=== PATIENT | male | born 1990 | race Caucasian/White ===

== ENCOUNTER 2018-03-18 09:22 | Inpatient (IN) | payer MEDICAID, OTHER ==
[2018-03-18] MEDS ORDERED: IOPAMIDOL (ISOVUE 370) 100 ML BTL IV ONE (09:31)
[2018-03-18 09:36] LABS: PLATELET COUNT 241 10^3/uL (150-400)
--- NOTE | 2018-03-18 09:44 | EDPHY ---
H & P Stated Complaint: post arrest Time Seen by Provider: 03/18/18 09:36 HPI/ROS: CHIEF COMPLAINT: Cardiac arrest, hanging Limitations: Patient unresponsive HISTORY OF PRESENT ILLNESS: 28-year-old male presents unresponsive and apneic after cardiac arrest. He was found this morning in [facility]pc hanging from a bed sheet. He was pulseless and apneic. He was lowered to the floor and CPR was initiated. Intubated with a Yogesh airway by EMS and epinephrine IO given. Regained pulses, but unable to detect a blood pressure. REVIEW OF SYSTEMS: unable to determine Source: EMS - Medical/Surgical History Hx Asthma: No Hx Chronic Respiratory Disease: No Hx Diabetes: No Hx Cardiac Disease: No Hx Renal Disease: No Hx Cirrhosis: No Hx Alcoholism: No Hx HIV/AIDS: No Hx Splenectomy or Spleen Trauma: No Other PMH: c-diff, ashbergers, ADHD - Social History Smoking Status: Never smoked - Physical Exam Exam: General Appearance: Unresponsive, pale Head: Atraumatic Eyes: Pupils fixed and dilated ENT, Mouth: Yogesh airway in place, poor dentition Neck: linear abrasion on anterior neck, cervical spine collar in place Respiratory: No spontaneous respirations, breath sounds are equal with ventilations Cardiovascular: Regular rate and rhythm, strong femoral pulse Abdomen: Abdomen is soft Skin: No lacerations Extremities: Normal inspection Neurological: Unresponsive to painful stimuli, flaccid, pupils fixed and dilated Constitutional: Initial Vital Signs Temperature (C) 36.0 C 03/18/18 09:33 Heart Rate 119 H 03/18/18 09:33 Respiratory Rate 16 03/18/18 09:33 Blood Pressure 63/45 L 03/18/18 09:33 O2 Sat (%) 98 03/18/18 09:33 O2 Delivery Mode Ventilator,Humidified Allergies/Adverse Reactions: Unable to Assess Allergy (Unverified 03/18/18 10:16) Home Medications: Medication Instructions Recorded Unobtainable 03/18/18 Medical Decision Making - Diagnostics EKG Interpretation: EKG interpreted by me reveals sinus tachycardia, rate 111, ST segment depression in leads V3-V5, no T-wave changes. Interpretation abnormal EKG Imaging Results: Imaging Impressions Chest X-Ray 03/18/18 09:28 Impression: 1. Chest negative for posttraumatic sequela with no pneumothorax identified. 2. Endotracheal tube in place. 3. Distended stomach. Results called and discussed with STEPHANE BRITTON M.D. on 03/18/2018 at 10:08. Cervical Spine CT 03/18/18 09:29 Impression: 1. Negative for intracranial bleed. 2. Query raised intracranial pressure versus normal sulcal pattern in a 28-year- old male. CT Cervical Spine Without Contrast History: Trauma. Technique: Multislice helical CT through the cervical spine without contrast from the skull base to T1. Soft tissue and bone evaluation is performed. Images are degraded by patient motion artifact, but images reviewed on the CT angiogram of the neck have less motion artifact. Sagittal and coronal reconstructions are obtained and reviewed. Dose reduction techniques were utilized. Findings: Cervical alignment is anatomic. No fracture or dislocation is identified. The relationship between skull base and C1 is normal. The C1-C2 articulation is normal. The odontoid process is normal. Disk spaces maintain their normal height. The cervicothoracic junction is normal. Soft tissue window evaluation does not show evidence of epidural or prevertebral hematoma. An endotracheal tube is in position. The esophagus is distended with fluid. Placement of a nasogastric tube is planned. Impression: 1. Negative for fracture. 2. The esophagus is distended with fluid. Results discussed with the trauma surgeon at [address] 03/18/18 09:29 Impression: 1. Negative for intracranial bleed. 2. Query raised intracranial pressure versus normal sulcal pattern in a 28-year- old male. CT Cervical Spine Without Contrast History: Trauma. Technique: Multislice helical CT through the cervical spine without contrast from the skull base to T1. Soft tissue and bone evaluation is performed. Images are degraded by patient motion artifact, but images reviewed on the CT angiogram of the neck have less motion artifact. Sagittal and coronal reconstructions are obtained and reviewed. Dose reduction techniques were utilized. Findings: Cervical alignment is anatomic. No fracture or dislocation is identified. The relationship between skull base and C1 is normal. The C1-C2 articulation is normal. The odontoid process is normal. Disk spaces maintain their normal height. The cervicothoracic junction is normal. Soft tissue window evaluation does not show evidence of epidural or prevertebral hematoma. An endotracheal tube is in position. The esophagus is distended with fluid. Placement of a nasogastric tube is planned. Impression: 1. Negative for fracture. 2. The esophagus is distended with fluid. Results discussed with the trauma surgeon at 1030 hours. Neck CTA 03/18/18 09:29 Impression: Negative CT angiography of the neck with no arterial occlusive disease identified. Results called and discussed with STEPHANE BRITTON M.D. on 03/18/2018 at 10:59. Findings were also reviewed with the trauma surgeon. Note: All stenoses are calculated using NASCET Criteria. Imaging: Discussed imaging studies w/ certified hand therapist Radiologist, I viewed and interpreted images myself Procedures: Procedure: Intubation Indication for the procedure was respiratory arrest. The patient was preoxygenated with 100% oxygen by face mask. No medications required for intubation. The patient was orally endotracheally intubated under direct glidescope visualization with an 8.0 ETT. Tracheal intubation was confirmed with misting on the tube; equal breath sounds bilaterally immediately after intubation; appropriate color change with [place] CO2 detector; and appropriate capnography waveform. Oxygen saturation after intubation is 100%. Chest X-ray shows ETT in good position. The procedure was performed by myself. ED Course/Re-evaluation: Full trauma activation initiated on patient arrival. 2 IVs were established, initial SBP 60's. IV NS 1 liter wide open. 8.0 endotracheal tube placed by me without complications. Stat portable chest x-ray reveals ET tube in appropriate positioning. Thermaguard catheter placed by Dr. Billings for HACA protocol. Norepi IV drip ordered for BP support, since SBP remains in the 60's. To CT scan for CT/CTA head/neck. CT scans per Dr. Zuñiga unremarkable. NGT placed; large amount of air in stomach d/t yogesh airway. Cabrera placed. Serial neuro exams unchanged. To ICU in critical condition. I spent a total of 40 minutes of critical care time in obtaining history, performing a physical exam, bedside monitoring of interventions, collecting and interpreting tests and discussion with consultants but not including time spent performing procedures. - Data Points Laboratory Results: Laboratory Results 03/18/18 09:15 03/18/18 09:15 03/18/18 03/18/18 03/18/18 09:31 09:15 09:15 WBC 7.15 10^3/uL 10^3/uL (3.80-9.50) RBC 4.40 10^6/uL 10^6/uL (4.40-6.38) Hgb 12.9 g/dL L g/dL (13.7-17.5) POC Hgb 13.9 gm/dL gm/dL (13.7-17.5) Hct 42.4 % % (40.0-51.0) POC Hct 41 % % (40-51) MCV 96.4 fL fL (81.5-99.8) MCH 29.3 pg pg (27.9-34.1) MCHC 30.4 g/dL L g/dL (32.4-36.7) RDW 14.1 % % (11.5-15.2) Plt Count 241 10^3/uL 10^3/uL (150-400) MPV 9.7 fL fL (8.7-11.7) Neut % (Auto) Not Reported Lymph % (Auto) Not Reported Montgomery % (Auto) Not Reported Eos % (Auto) Not Reported Baso % (Auto) Not Reported Nucleat RBC Rel Count Not Reported Absolute Neuts (auto) Not Reported Absolute Lymphs (auto) Not Reported Absolute Monos (auto) Not Reported Absolute Eos (auto) Not Reported Absolute Basos (auto) Not Reported Absolute Nucleated RBC Not Reported Immature Gran % Not Reported Seg Neutrophils % 8.0 % % Band Neutrophils % 3.0 % % Lymphocytes % 71.0 % % Monocytes % 4.0 % % Eosinophils % 1.0 % % Basophils % 0 % % Metamyelocytes % 5.0 % % Myelocytes % 8.0 % % Promyelocytes % 0 % % Blast Cells % 0 % % Immature Gran # Not Reported Absolute Seg Neuts 0.57 10^/uL L 10^/uL (1.70-6.50) Absolute Band Neuts 0.21 10^3/uL 10^3/uL (0.00-0.70) Absolute Lymphocytes 5.08 10^3/uL H 10^3/uL (1.00-3.00) Absolute Monocytes 0.29 10^3/uL L 10^3/uL (0.30-0.80) Absolute Eosinophils 0.07 10^3/uL 10^3/uL (0.03-0.40) Absolute Basophils 0.00 10^3/uL L 10^3/uL (0.02-0.10) Absolute Metamyelocyte 0.36 10^3/mL H 10^3/mL (0.00-0.00) Absolute Myelocytes 0.57 10^3/mL H 10^3/mL (0.00-0.00) Absolute Promyelocytes 0.00 10^3/uL 10^3/uL (0.00-0.00) Absolute Plasma Cells 0.00 10^3/uL 10^3/uL (0.00-0.00) Differential Comment Not Reported Absolute Blast Cells 0.00 10^3/uL 10^3/uL (0.00-0.00) Plasma Cells % 0 % % Platelet Estimate ADEQUATE (ADEQ) POC Sodium 140 mEq/L mEq/L (135-145) Sodium 140 mEq/L mEq/L (135-145) POC Potassium 3.5 mEq/L mEq/L (3.3-5.0) Potassium 3.8 mEq/L mEq/L (3.3-5.0) POC Chloride 103 mEq/L mEq/L (97-110) Chloride 104 mEq/L mEq/L (97-110) Carbon Dioxide 14 mEq/l L mEq/l (22-31) Anion Gap 22 mEq/L H mEq/L (8-16) POC BUN 19 mg/dL mg/dL (7-23) BUN 14 mg/dL mg/dL (7-23) Creatinine 1.1 mg/dL mg/dL (0.7-1.3) POC Creatinine 1.2 mg/dL mg/dL (0.7-1.3) Estimated GFR > 60 Glucose 276 mg/dL H mg/dL (70-100) POC Glucose 291 mg/dL H mg/dL (70-100) Calcium 9.1 mg/dL mg/dL (8.5-10.4) Ethyl Alcohol < 10 mg/dL mg/dL (0-10) Medications Given: Fentanyl/Sodium Chloride (Fentanyl 10 Mcg/Ml (Premix)) 100 mls @ 0 mls/hr IV CONT LAKSHMI; Per Protocol PRN Reason: Protocol Stop: 03/28/18 11:29 Last Admin: 03/18/18 12:28 Dose: 100 mls Dextrose (D5w) 1,000 mls @ 25 mls/hr IV CONT LAKSHMI PRN Reason: Protocol Stop: 09/14/18 14:29 Last Admin: 03/18/18 14:46 Dose: 1,000 mls Insulin Human Regular 100 unit (/ Sodium Chloride) 101 mls @ 0 mls/hr IV CONT LAKSHMI; Per Protocol PRN Reason: Protocol Stop: 09/14/18 14:29 Last Admin: 03/18/18 14:46 Dose: 101 mls Discontinued Medications Sodium Chloride (Ns) 1,000 mls @ 0 mls/hr IV ONCE ONE; Wide Open PRN Reason: Protocol Stop: 03/18/18 11:35 Last Admin: 03/18/18 09:25 Dose: 1,000 mls Potassium Chloride (Potassium Cl 10 Meq (Premix)) 50 mls @ 100 mls/hr IV Q30M LAKSHMI Stop: 03/18/18 13:44 Last Admin: 03/18/18 13:35 Dose: Not Given Miscellaneous Information (Message To Rn) 1 ea MISC ONCE ONE Stop: 03/18/18 13:31 Last Admin: 03/18/18 13:35 Dose: 1 ea Point of Care Test Results: Chemistry 03/18/18 09:31 POC Sodium 140 mEq/L mEq/L (135-145) POC Potassium 3.5 mEq/L mEq/L (3.3-5.0) POC Chloride 103 mEq/L mEq/L (97-110) POC BUN 19 mg/dL mg/dL (7-23) POC Creatinine 1.2 mg/dL mg/dL (0.7-1.3) POC Glucose 291 mg/dL H mg/dL (70-100) ISTAT H&H 03/18/18 09:31 POC Hgb 13.9 gm/dL gm/dL (13.7-17.5) POC Hct 41 % % (40-51) Departure - Departure Disposition: [facility] Inpatient Acute Clinical Impression: Cardiopulmonary arrest Asphyxiation due to hanging Qualifiers: Encounter type: initial encounter Injury intent: intentional self-harm Qualified Code(s): T71.162A - Asphyxiation due to hanging, intentional self-harm , initial encounter Condition: Critical
--- NOTE | 2018-03-18 09:48 | CPEKG ---
Heart Rate: 111 RR Interval: 541 P-R Interval: 140 QRSD Interval: 86 QT Interval: 352 QTC Interval: 479 P [place]: 88 QRS [place]: 18 T Wave [place]: 37 EKG Severity - ABNORMAL ECG - EKG Impression: SINUS TACHYCARDIA EKG Impression: ST DEPRESSION, CONSIDER ISCHEMIA, ANT LEADS EKG Impression: BORDERLINE PROLONGED QT INTERVAL Electronically Signed By: Melody Deras 18-Mar-2018 14:50:47
[2018-03-18] MEDS ORDERED: NOREPINEPHRINE BITARTRATE 16 MG in NS 250 ML IV SCH (10:00)
[2018-03-18] MEDS ORDERED: NALOXONE HCL 0.4 MG/ML INJ IVP PRN (10:16)
[2018-03-18] MEDS ORDERED: NOREPINEPHRINE/NS 500 ML IV SCH (10:30)
[2018-03-18] MEDS ORDERED: VECURONIUM BROMIDE 50 MG in NS 50 ML IV SCH (11:30)
[2018-03-18] MEDS ORDERED: NS 1,000 ML IV ONE ×2 (11:34→11:35)
--- NOTE | 2018-03-18 11:49 | GCON ---
[f rep st] CONSULTATION RETAIL ACCOUNT REPRESENTATIVE CONSULTATION REASON FOR ADMISSION: Status post hanging, anoxic brain injury. HISTORY OF PRESENT ILLNESS: The patient is a 28-year-old, white male with a past medical history of IV drug use, Asperger syndrome, ADHD, hepatitis C, and HIV by history. He was brought in via EMS fro m the senior living where he was found hanging from a bed sheet. Upon presentation, he was pulseless and apne ic. After CPR was performed, he was subsequently resuscitated. He was transferred to the intensive care unit and is currently on HOCA protocol. Currently, patient is in coma on mechanical ventilation . All history is gleaned from the medical record. PAST MEDICAL HISTORY: Again significant for C difficile, ADHD, Asperger, and verbal history of HIV p ositivity. ALLERGIES: No known medications. SOCIAL HISTORY: Unknown. FAMILY HISTORY: Unknown and noncontributory. MEDICATIONS: At home are unknown. REVIEW OF SYSTEMS: 10-point review of systems was attempted, but unable to performed, secondary to c stanley. PHYSICAL EXAMINATION: VITAL SIGNS: Blood pressure is 62/27, pulse is 119, respirations 16, temperat ure 36.9, oxygen saturations 98% on mechanical ventilation. GENERAL: He is a well-developed, well-n ourished, 28-year-old, white male who is in coma and on mechanical ventilation. HEENT: Eyes are poo rly reactive to light. Throat: Endotracheal tube is in good position. NECK: Patient is in a C-col lar. HEART: Regular rate and rhythm without murmurs, rubs, gallops. LUNGS: Clear to auscultation. No wheeze or rhonchi. ABDOMEN: Soft, nontender. Bowel sounds are present. EXTREMITIES: No club surinder, cyanosis, or edema. LABORATORY/IMAGING: White count 7.1, hemoglobin 12, hematocrit 42, platelet count is 241. Sodium 14 0, potassium 3.8, chloride 104, CO2 is 14, BUN is 14, creatinine 1.1, glucose is 276. Arterial blood gas: pH 7.24, pCO2 of 25, pO2 of 111, bicarb 11, oxygen saturation 97%. This is on mechanical vent ilation of AC of 16, tidal volume 550, plus5 of PEEP and 100%. Urine drug screen is non-negative for amphetamines, as well as marijuana. C-spine CT is negative for fracture. CT scan of the head is negative for bleed and there were no findings, which suggest acute cortical is chemia. IMPRESSION: 1. Status post hanging. 2. Probable severe anoxic brain injury. 3. Acute respiratory failure, secondary to above. 4. Metabolic acidosis. 5. Polysubstance abuse. 6. History of attention deficit hyperactivity disorder. 7. History of Asperger's. 8. Possible human immunodeficiency virus positive. RECOMMENDATIONS: 1. HOCA per protocol. 2. Continue mechanical ventilation. 3. Adequate sedation. 4. DVT and PE prophylaxis. 5. Stress ulcer prophylaxis. 6. Neurology will see the patient. 7. We will discuss case with surgery. 8. We will attempt to get in touch with the patient's family. /[id number]/MODL
[2018-03-18] MEDS ORDERED: PROTOCOL MAGNESIUM 1 DOSE IV PRN (12:06)
[2018-03-18] MEDS ORDERED: PROTOCOL POTASSIUM 1 DOSE MISC PRN (12:06)
[2018-03-18] MEDS: fentaNYL/NACL 100 ML IV SCH (12:28)
[2018-03-18] MEDS: POTASSIUM Cl (KCl) 50 ML IV SCH ×5 (12:28→20:45)
[2018-03-18 12:48] LABS: INR 1.27 (0.83-1.16); PROTIME(PATIENT) 16.1 SEC (12.0-15.0)
[2018-03-18] MEDS ORDERED: niCARdipine/NACL 200 ML IV PRN (13:30)
[2018-03-18] MEDS ORDERED: RN MUST ADD K & MAG PROT TO WORKLIST MISC ONE (13:30)
--- NOTE | 2018-03-18 13:38 | GOP ---
[f rep st] OPERATIVE REPORT DATE OF OPERATION: 03/18/2018 SURGEON: Humphrey Billings MD PROSTHODONTIST: None. ANESTHESIA: None. PREOPERATIVE DIAGNOSIS: Cardiac arrest after near-hanging POSTOPERATIVE DIAGNOSIS: Cardiac arrest after near-hanging PROCEDURE PERFORMED: Right femoral vein hypothermia catheter placement. FINDINGS: Successful cannulation and placement of hypothermia catheter into the right femoral vein. SPECIMENS: None. ESTIMATED BLOOD LOSS: 3 cc. DESCRIPTION OF PROCEDURE: In the trauma bay, the patient's right groin was prepped and draped in a typical sterile fashion. A time-out was performed. Via anatomic landmarks, I identified the right femoral vein. I successfully cannulated it with a single stick and threaded my guidewire. I then serially dilated and threaded the catheter over this all the way to the hub. All 3 ports on the triple-lumen portion of the catheter both flushed and withdrew appropriately. They were saline locked. The catheter was then attached to the skin. A Biopatch was placed, as well as a sterile dressing. The patient tolerated the procedure well without any complications. DRAINS: None. /[id number]/MODL MTDD
--- NOTE | 2018-03-18 13:49 | GHP ---
[f rep st] PREOP HISTORY AND PHYSICAL DATE OF ADMISSION: 03/18/2018 CHIEF COMPLAINT: Near hanging. HISTORY OF PRESENT ILLNESS: This is a 28-year-old male brought to the [facility] as a full trauma activation from the [facility]. Briefly, the patient was in ja il since last evening. He was found in his cell with a sheet wrapped around his neck unconscious and without a pulse. Approximate down time maximum was 30 minutes as their rounds were every 30 minutes minimum. Chest compressions were started. EMS arrived and after 1 round of epinephrine and 1 defib rillation, the patient regained a pulse. He was subsequently transferred here and maintained a low b lood pressure and pulse en route. On arrival here, he was made a full trauma activation. He had an oral airway, which was subsequently changed out for an endotracheal tube per Dr. Deras without issue. He had no other signs of trauma other than some ligature rockwell on his neck. His pupils were fixed a nd dilated. After his airway was secured and he was stable on the vent, his lungs were otherwise eduardo ar without any significant signs of trauma, and he did have distal peripheral pulses. There is reall y minimal other report from the shelter other than the above. PAST MEDICAL HISTORY: Unobtainable. PAST SURGICAL HISTORY: Unobtainable. CURRENT MEDICATIONS: Unobtainable. ALLERGIES: Unobtainable. REVIEW OF SYSTEMS: Unobtainable. FAMILY HISTORY: Unobtainable. PHYSICAL EXAM: VITAL SIGNS: Heart rate was initially in the 90s. Blood pressure was 70s to 80 syst olic. CONSTITUTIONAL: He was sedated and intubated. He was not moving anything. EYES: His pupils were fixed and dilated. EARS, NOSE, MOUTH, AND THROAT: No trauma to his nose, mouth. NECK: Somew hat swollen with ligature rockwell anteriorly. He did not have any petechial hemorrhages or any other v enous or arterial hemorrhages in his neck. He had bilateral 2+ carotid pulses. CARDIOVASCULAR: He was bradycardic and hypotensive with no appreciable murmurs. RESPIRATORY: No respiratory distress, intubated, no rales, and he was otherwise clear. GI: His abdomen was soft and nondistended. SKIN: Other than the ligature rockwell on his neck was warm, not mottled, and without rashes or abrasions. M USCULOSKELETAL: The patient was not moving anything and was not on arrival. NEUROLOGIC: GCS 3T. P upils fixed and dilated. PSYCH: Unobtainable. LYMPH/HEME/IMMUNOLOGIC: No cervical or groin lympha denopathy was appreciated. LABORATORY DATA: White blood cell count normal at 7. H and H normal at 13 and 42, platelets 241. C hemistry was unremarkable. Tox screen was positive for amphetamines and marijuana. IMAGING: Includes a CT of his head and C-spine as well as CTA of his neck, all of which were negativ e for acute trauma and vessel injury. ASSESSMENT AND PLAN: 28-year-old male status post near hanging at the [facility] shelter. The enrique ent received chest compressions, epinephrine, and defibrillation with return of spontaneous circulati on prior to arrival here. He was hypertensive here. He received norepinephrine and responded approp riately with his pressures being somewhat hypertensive in the emergency department. Plan will be to place a hypothermia catheter into his right femoral vein, cool the patient down appropriately per the hypothermia after cardio arrest protocol, orogastric tube, Cabrera catheter placement. /[id number]/MODL
--- NOTE | 2018-03-18 14:27 | PDMN ---
Medical Necessity Medical necessity: Pt meets inpt criteria per MD order and Respiratory failure GRG. Pt admitted w/ cardiac arrest after near hanging in fdc cell, found unresponsive, CPR, intubated, to OR for R fem vein hypothermia catheter placement, probable anoxic brain injury, metabolic acidosis, coma- mech ventilation, ICU monitoring. Anticipate>2MN for ongoing treatment.
[2018-03-18] MEDS ORDERED: D5W 1,000 ML IV SCH (14:30)
[2018-03-18] MEDS: INSULIN REGULAR HUMAN 100 UNIT in NS 100 ML IV SCH (14:46)
--- NOTE | 2018-03-18 15:34 | ASMTLACE ---
AIDEN Acuity / Level of Answers: Yes Care: Did the patient have an inpatient admission? # of Emergency department Answers: 1-2 visits in the last 6 months Social determinants Answers: History of substance abuse (ETOH, street drugs, prescription drugs, etc.) Homelessness (street, intermediate) Lack of community resources and/or lack of social support (no pcp, lives alone, transportation, jerrod d) Score: 14 Date Signed: 03/18/2018 03:34 PM Electronically Signed By:Chely Wolff RN
--- NOTE | 2018-03-18 17:27 | ASMTCMCOM ---
CM Note CM Note Notes: Pt presented to the ED via EMS from care home after he was found unconscious and pulseless with a sheet wrapped around his neck. CPR was performed and ROSC was obtained via EMS. Pt admitted for s/p cardiac arrest and is receiving HACA treatment. This CM was finally able to locate pt's mother, Casie Danielle ([phone]) who lives in [facility]. This CM had contacted [place] [employer] ([phone]) and requested an officer go to an address ([address] [place] [address]) that the patient had listed on records w/[place] [employer]. Officer Juan Francisco Calderon w/[place] [employer] went to the address and remained w/Casie while this CM spoke to her and informed her of pt's status. Casie became extremely distraught and was not able to participate in further conversation. Officer Kvng says he is familiar with patient and his family and will ensure Casie and family have necessary support and assistance during this time. Received a call back from Casie and her sister, Monica Diaz ([phone]), who is a heat treat furnace operator. Casie gave verbal permission to provide pt's medical status and information to Monica. Updates provided and ICU # provided to them to call for further updates. EDUCATIONAL SPECIALIST Salvador updated and aware that Casie and Monica may be calling for updates. Casie confirmed that patient has a history of Asberger's syndrome and drug abuse but no other known medical history (might have some GI issues?), medications, or allergies. Casie is aware that pt is in critical condition and is going to be looking into coming to [place] but per Monica pt is not emotionally stable to travel any time soon and there are also financial concerns. Pt's sister, Malorie Tobias ([phone]) also lives in [place], [place] and if staff are unable to reach Casie or Monica, Casie has given permission to then contact Malorie. Pt was in the ED last night for medical clearance to care home. This CM spoke w/Jluianne, the care home RN ([phone]) and she states that the pen rider investigating the case has pt's cell phone and other belongings. This CM spoke w/ Sergeant Montgomery with [place] [employer] (c: [phone]); she stated pt was arrested last night for trespassing and was only going to receive a ticket but then was being held due to a failure to appear in [place]; last night was the patient's first encounter w/[employer]. Sergeant Montgomery said they will release patient on a [place] villanueva and so patient is no longer in their custody. It appears pt has been homeless but its unclear for how long. Spoke w/EDWIGE Reis at [facility] to [place] and he confirmed that pt is not in their system. During the pt's ED visit last night he listed an address that belongs to [employer] ([phone]), a buddhism in [place]. This CM contacted [facility] and spoke w/Florin Bhatia who works for [place] [employer] ([phone]) and he was able to confirm that patient had completed their CE process on 03/05/18 but has only been utilizing their day services intermittently. Pt has a history of meth and heroin abuse and has been through rehab programs before (s/w staff at [facility] and his last stay there was in 2014). Pt also reported to ED staff last night that he was diagnosed with C-diff 3 weeks ago. Per Casie, pt was visiting in [place] about 3 weeks ago before returning to [place]. After pt is gradually re-warmed in a couple of days, neurological and anoxic brain injury status will be evaluated. CM to follow. Date Signed: 03/18/2018 05:26 PM Electronically Signed By:Chely Wolff RN
[2018-03-18] MEDS: SODIUM BICARBONATE 50 MEQ in 1/2 NS 1,000 ML IV SCH (18:50)
[2018-03-18] MEDS: CHLORHEXIDINE GLUCONATE 15 ML UDL PO SCH (20:16)
[2018-03-18] MEDS: FAMOTIDINE 20 MG/NACL 50 ML IV SCH (20:46)
[2018-03-18 23:53] LABS: INR 1.34 (0.83-1.16); PROTIME(PATIENT) 16.8 SEC (12.0-15.0)
[2018-03-19 00:13] LABS: PLATELET COUNT 272 10^3/uL (150-400)
[2018-03-19] MEDS ORDERED: POTASSIUM Cl (KCl) 50 ML IV ONE (00:57)
[2018-03-19 02:30] LABS: HEPATITIS B SURFACE ANTIGEN NEGATIVE (NEGATIVE)
[2018-03-19] MEDS: fentaNYL/NACL 100 ML IV SCH ×3 (04:05→22:06)
[2018-03-19 04:08] LABS: HEPATITIS A ANTIBODY IGM (BCH) NEGATIVE (NEGATIVE); HEPATITIS B CORE AB IGM NEGATIVE (NEGATIVE)
[2018-03-19 04:17] LABS: HEPATITIS C ANTIBODY TOTAL NEGATIVE (NEGATIVE); HIV TYPE 1 AND 2 NEGATIVE (NEGATIVE)
[2018-03-19 04:28] LABS: PLATELET COUNT 291 10^3/uL (150-400)
[2018-03-19 04:48] LABS: INR 1.38 (0.83-1.16); PROTIME(PATIENT) 17.1 SEC (12.0-15.0)
[2018-03-19] MEDS: PROPOFOL/EMULSION 100 ML IV SCH ×2 (05:30→18:15)
[2018-03-19] MEDS: SODIUM BICARBONATE 50 MEQ in 1/2 NS 1,000 ML IV SCH (05:54)
[2018-03-19] MEDS ORDERED: SODIUM BICARBONATE IV SCH (06:30)
[2018-03-19] MEDS ORDERED: 1/2 NS IV SCH (06:30)
--- NOTE | 2018-03-19 08:29 | CPEKG ---
Heart Rate: 73 RR Interval: 822 P-R Interval: 104 QRSD Interval: 84 QT Interval: 448 QTC Interval: 494 P [place]: 40 QRS [place]: 52 T Wave [place]: -77 EKG Severity - ABNORMAL ECG - EKG Impression: SINUS RHYTHM EKG Impression: SHORT HI INTERVAL, ACCELERATED AV CONDUCTION EKG Impression: BORDERLINE T ABNORMALITIES, DIFFUSE LEADS EKG Impression: PROLONGED QT INTERVAL Electronically Signed By: Wilder Christensen 19-Mar-2018 10:06:39
[2018-03-19] MEDS: FAMOTIDINE 20 MG/NACL 50 ML IV SCH ×2 (08:41→22:06)
[2018-03-19] MEDS: CHLORHEXIDINE GLUCONATE 15 ML UDL PO SCH ×2 (08:43→22:07)
[2018-03-19] MEDS ORDERED: RN MUST ADD CA+ & PHOS PROTOCOL TO WORKLIST MISC SCH (09:00)
[2018-03-19] MEDS ORDERED: RN MUST REMOVE K+ & MG+ PROTOCOL FRM WORKLIST MISC SCH (09:00)
[2018-03-19] MEDS: PETROLAT,WHT/MIN OIL/SOD CHL 3.5 GM OPHT.OINT EACHEYE PRN (13:00)
--- NOTE | 2018-03-19 13:03 | PDINTPN ---
Repulping Supervisor Progress Note Assessment/Plan: Assessment: 28-year-old status admitted 03/18 post self hanging in retirement, with likely severe anoxic injury. On HACA protocol Anoxic injury: Still early on, on HACA. Neurologic prognosis is difficult to assess at this time but severe anoxic injury and probable poor prognosis suspected. Rewarming to start approximately 11:00 a.m. today. Neurologic status can start to be assessed at 12-24 hours post initiation of warming. Probably will not know much until tomorrow a.m. Status post arrest: Secondary to 1. Received CPR, epi. Hypotensive presumably prior to this. Metabolic: Metabolic acidosis. Lactate remains high likely secondary to multiple end-organ anoxia/ischemia. On a bicarb drip. Hypotension: On Levophed. CVP approximately 9 abdominally. Will add 2nd pressor, continue IV fluids. Elevated liver functions studies: Likely secondary to shock liver. Hepatitis B serology negative. Possible history of HIV positivity? HIV antibody screen negative. Leukocytosis: Presumably secondary to shock. DVT prophylaxis: SCDs. GI prophylaxis: On famotidine History of drug abuse, attention deficit hyperactivity disorder, Asperger's. Prognosis: May be poor. Family has been contacted. Mother out of state. Remains full cor for now. Plan: Continue aggressive supportive care in the intensive care unit. Continue HACA protocols until Re warmed. Continue off of paralytics unless needed. Follow laboratory, chest x-ray, blood gas. Evaluate neurologic function once fully Re warmed. Neurologic consultation tomorrow. Consider repeat CT scan looking for evidence of diffuse ischemic injury tomorrow. Add a 2nd pressor. Art line to be placed. 40 min of critical care time spent directly with the patient. Discussed with Trauma surgery, respiratory, nursing, the ICU multi disciplinary team. Subjective: Unresponsive, on ventilator, on HACA protocol Objective: Vital Signs Temp Pulse Resp BP Pulse Ox 33.2 C L 76 27 H 112/93 H 100 03/19/18 11:00 03/19/18 12:37 03/19/18 11:00 03/19/18 11:00 03/19/18 12:37 Laboratory Results 03/19/18 03:55 03/18/18 03/19/18 03/20/18 05:59 05:59 05:59 Intake Total 4592.1 Output Total 720 Balance 3872.1 PT 17.1 SEC (12.0-15.0) H 03/19/18 03:55 INR 1.38 (0.83-1.16) H 03/19/18 03:55 Laboratory Tests 03/19/18 03/19/18 03/19/18 03:55 03:55 12:17 PT 17.1 H INR 1.38 H APTT 29.4 pCO2 20 L pO2 98 H ABG pH 7.35 ABG Base Excess -12.9 L ABG Lactic Acid 4.4 H O2 Concentration % 40 Respiration Rate 26 Tidal Volume 550 PEEP 5 Calcium 8.6 Magnesium 2.4 H AST 980 H ALT 670 H Albumin 3.1 L CXR: Lines and tubes in good position. No infiltrates. Physical Exam - Physical Exam General Appearance: unresponsive EENT: PERRL/EOMI, ET tube, other (OG) Neck: other (Hard collar in place) Respiratory: lungs clear, decreased breath sounds (At bases) Cardiac/Chest: regular rate, rhythm Abdomen: normal bowel sounds (Quiet), non-tender (Can't assess), soft Male Genitalia: other (Cabrera catheter in place, making urine. Input greater than output.) Skin: warm/dry, pallor Extremities: No pedal edema Neuro/Psych: cognition abnormalities (coma ), No no motor/sensory deficits ( Intermittent myoclonic activity. Posturing earlier) ICD10 Worksheet Patient Problems: Problems Problem Status Onset Asphyxiation due to hanging Acute Cardiopulmonary arrest Acute
[2018-03-19] MEDS ORDERED: VASOPRESSIN/DEXTROSE 250 ML IV SCH (13:30)
[2018-03-19] MEDS: NOREPINEPHRINE BITARTRATE 4 MG in D5W 500 ML IV SCH (13:49)
[2018-03-19 15:20] LABS: INR 1.3 (0.83-1.16); PROTIME(PATIENT) 16.4 SEC (12.0-15.0)
--- NOTE | 2018-03-19 15:40 | ASMTCMCOM ---
CM Note CM Note Notes: CM contacted Monica, patient's aunt and explained the Medical Proxy responsibilities in [place]. Stacey to talk with patient's mother and other family members to determine who should be Med Proxy. Monica reported that family has pooled together resources to fly pt's mother-Casie Alejo, and his sister Kim Tobias to [place]. She asked if a Endband Sizer could assist at bedside when mother arrives-Chaplains have been given this message. Date Signed: 03/19/2018 03:40 PM Electronically Signed By:Ann Huber LCSW
[2018-03-19] MEDS: INSULIN REGULAR HUMAN 100 UNIT in NS 100 ML IV SCH (22:06)
[2018-03-20] MEDS ORDERED: POTASSIUM Cl (KCl) 50 ML IV ONE (01:30)
[2018-03-20 04:42] LABS: INR 1.33 (0.83-1.16); PROTIME(PATIENT) 16.7 SEC (12.0-15.0)
[2018-03-20] MEDS ORDERED: PROTOCOL K PHOSPHATE 1 DOSE IV PRN (07:11)
[2018-03-20] MEDS ORDERED: PROTOCOL CALCIUM 1 DOSE IV PRN (07:11)
[2018-03-20] MEDS: CHLORHEXIDINE GLUCONATE 15 ML UDL PO SCH ×2 (07:49→20:42)
[2018-03-20] MEDS: FAMOTIDINE 20 MG/NACL 50 ML IV SCH ×2 (07:49→20:42)
[2018-03-20] MEDS: PETROLAT,WHT/MIN OIL/SOD CHL 3.5 GM OPHT.OINT EACHEYE PRN (07:49)
[2018-03-20] MEDS ORDERED: DESMOPRESSIN ACETATE 1 MCG in NS 50 ML IV ONE (09:23)
[2018-03-20] MEDS: ENOXAPARIN 80 MG/0.8 ML SYR SC SCH ×2 (09:48→20:42)
[2018-03-20] MEDS: NOREPINEPHRINE BITARTRATE 4 MG in D5W 500 ML IV SCH ×2 (09:49→14:30)
--- NOTE | 2018-03-20 11:25 | PDINTPN ---
Lead Simulation Modeling Engineer Progress Note Assessment/Plan: Assessment: 28-year-old status admitted 03/18 post self hanging in group home, with severe anoxic injury. S/P HACA protocol Anoxic injury: Neurologic prognosis very poor, likely brain . He is re- warmed, off sedation or pain medications for 12 hr, unresponsive, with blown pupils. 5 min off ventilator he had no evidence of respiratory efforts despite rising pCO2 and saturations in the 50s. Formal apnea test pending. CT scan of the head yesterday afternoon indicated tentorial and tonsillar herniation. Status post arrest: Secondary to 1. Received CPR, epi. Hypotensive presumably prior to this. Metabolic: Metabolic acidosis. Improving. On a bicarb drip. Hypotension: On Levophed and vasopressin. Will continue IV fluids. Elevated liver functions studies: Secondary to shock liver. Hepatitis B serology negative. Possible history of HIV positivity? HIV antibody screen negative. Leukocytosis: Presumably secondary to shock. DVT prophylaxis: SCDs. GI prophylaxis: On famotidine History of drug abuse, attention deficit hyperactivity disorder, Asperger's, suicide issues in the past. Prognosis: Quite poor as noted above. For apnea test and other tests to determine brain today. I have discussed this with the patient's mother and 2 siblings who are now here. Remains full cor for now. The patient is not decisional regarding medical issues as well as any other issues as a result of his severe anoxic injury. Medical power of patent attorney likely will be the patient' s aunt who is an ICU nurse out of state. Plan: Continue supportive care in the intensive care unit. Formal apnea test to be done this morning. Neurologic consultation will be requested. I have asked the family to consider a do not resuscitate status at this point in time. I also discussed the issue of brain and determining brain . If he is legally brain then we will need to have further discussions with the patient's mother (who may not be accepting of this?), the medical power of patent attorney once determined, and with donor [place] if the family is accepting of organ donation. 65 min of critical care time spent directly with the patient. Discussed at length with the patient's mother and 2 siblings who have just arrived from out of state, and with Trauma surgery, respiratory, nursing, the ICU multi disciplinary team. APNEA TEST: Initial apnea test was unsuccessful secondary to the fact that we could not get a blood gas after 10 min of being off the ventilator. He was on a T-piece with 100% oxygen blow-by. End-tidal CO2 remained 0 throughout the entire 10+ minutes. Oxygen saturations dropped into the 30s. There is no evidence of any respiratory efforts. At the end blood pressure dropped and EKG widened. We were unable to find good pulses or get a blood gas needle into a artery with return blood flow. The patient was bagged temporarily and placed back on the ventilator with return of blood pressure and initially a sinus tachycardia. A 2nd apnea test is planned, with blood gases done at 6 min, 8 min , and if he tolerates the test, 10 min. Subjective: Unresponsive, off sedation. Pupils blown. Objective: Vital Signs Temp Pulse Resp BP Pulse Ox 36.5 C 79 18 107/74 95 03/20/18 10:00 03/20/18 10:00 03/20/18 10:00 03/20/18 10:00 03/20/18 10:00 Laboratory Results 03/20/18 04:10 03/20/18 04:10 03/19/18 03/20/18 03/21/18 05:59 05:59 05:59 Intake Total 4592.1 5519.5 Output Total 720 3850 400 Balance 3872.1 1669.5 -400 PT 16.7 SEC (12.0-15.0) H 03/20/18 04:10 INR 1.33 (0.83-1.16) H 03/20/18 04:10 Laboratory Tests 03/20/18 03/20/18 03/20/18 04:10 04:10 04:10 PT 16.7 H INR 1.33 H APTT 29.7 pCO2 29 L pO2 54 L Total CO2 19 L ABG O2 Saturation 88 L O2 Concentration % 50 Respiration Rate 18 Tidal Volume 557 PEEP 5 Calcium 8.3 L Phosphorus Magnesium 1.9 Total Bilirubin 0.4 AST 264 H ALT 434 H Albumin 2.5 L 03/20/18 04:10 PT INR APTT pCO2 pO2 Total CO2 ABG O2 Saturation O2 Concentration % Respiration Rate Tidal Volume PEEP Calcium Phosphorus 3.2 Magnesium Total Bilirubin AST ALT Albumin CT head: Yesterday evening. Evidence of herniation present Physical Exam - Physical Exam General Appearance: unresponsive, other (On ventilator) EENT: ET tube, No PERRL/EOMI (Pupils dilated, unreactive. No corneals.) Neck: other (Collar in place) Respiratory: lungs clear (Anteriorly), decreased breath sounds (At bases) Cardiac/Chest: regular rate, rhythm Abdomen: soft, No normal bowel sounds (Decreased, a few present), No non-tender (Can't assess) Male Genitalia: other (Cabrera catheter in place. Good urine output. I 5520/O 3850 last 24hr) Skin: warm/dry, pallor Extremities: No pedal edema Neuro/Psych: cognition abnormalities (Coma, unresponsive), No no motor/sensory deficits ICD10 Worksheet Patient Problems: Problems Problem Status Onset Asphyxiation due to hanging Acute Cardiopulmonary arrest Acute
[2018-03-20] MEDS: PHENYLEPHRINE HCL 50 MG in NS 250 ML IV SCH ×2 (14:30→22:20)
--- NOTE | 2018-03-20 15:48 | NEUROPROG ---
Assessment: HOSPITAL NEUROLOGY CONSULT REQUESTING: Tho Grover MD REASON: brain HPI: 28 year old brought from the half-way on 03/18 after being found hanging from a bed sheet in his cell. He was in cardiopulmonary arrest at that point but resuscitated. Unknown down time, but at most 30 mins given q30 min rounds by half-way staff. He was started on HACA protocol and rewarmed yesterday. Has been off sedatives, is not paralyzed, had no electrolyte/endocrine disturbance noted. Respiratory status/acid-base status optimized per Pulm/CC team. CT head was done showing global cerebral edema and tentorial/tonsillar herniation. Pulm/CC team has not noted any meaningful neurologic function including brainstem activity. Neurology has been asked to perform a brain exam. Apnea testing was performed but on discontinuing MV his BP dropped precipitously and patient had unstable EKG changes, so MV reinstituted - note that during this test the patient had no respiratory effort whatsoever. ROS: As per the HPI, otherwise a complete 12 point ROS was performed and is negative ALLERGIES AND MEDS: As recorded in the EMR - reviewed and reconciled PFSH: As per the intake CC consult by Dr. Adhikari from 03/18 EXAM: VS: BP 114/72, core temp 36.5C GEN: off sedation > 12h, on MV MS: comatose - eyes closed, no response of any kind to verbal, tactile, noxious stimuli CN: pupils 6mm round and fixed/unresponsive to light. Absent oculocephalics. No response/eye movement to cold water caloric testing in each ear after 1 min observation post-infusion in each ear, with testing between ears by 5 mins. Absent corneals. No facial movements to noxious stim of the face and extremities. No gag to ETT manipulation, no cough to deep ETT suction. MOTOR: flaccid, no movements of any kind observed SENSORY: no response to noxious stimulation in all 4 extremities DATA REVIEW: Labs reviewed in EMR PERSONALLY INTERPRETED RESULTS AND DATA: CT head wo as per the HPI IMPRESSION AND RECOMMENDATIONS: // SUSPECT BRAIN // COMA // HYPOXIC ISCHEMIC BRAIN INJURY Patient likely brain due to the presence of coma, absence of brainstem function, and no meaningful respiratory function on apnea testing attempt. His CT head wo shows global edema from HIBI and tentorial/tonsillar herniation. Unable to perform full apnea testing as patient became hemodynamically unstable on discontinuing MV - plan on radionuclide CBF scan in morning. However, given the information at hand I really do not think this patient has a chance for meaningful neurologic recovery due to this irreversible damage to the central nervous system. Patient critically ill with coma, HIBI and suspected brain 75 mins CC time in direct patient care activities on the floor. Case was directly discussed and coordinated with Dr. Grover, RT, nursing at bedside. Objective: Vital Signs Temp Pulse Resp BP Pulse Ox 36.5 C 87 14 111/72 100 03/20/18 15:00 03/20/18 15:00 03/20/18 15:00 03/20/18 15:00 03/20/18 15:00 Laboratory Results 03/20/18 04:10 03/20/18 12:10 03/19/18 03/20/18 03/21/18 05:59 05:59 05:59 Intake Total 4592.1 5519.5 Output Total 720 3850 400 Balance 3872.1 1669.5 -400 PT 16.7 SEC (12.0-15.0) H 03/20/18 04:10 INR 1.33 (0.83-1.16) H 03/20/18 04:10 Allergies/Adverse Reactions: Unable to Assess Allergy (Unverified 03/18/18 10:16)
--- NOTE | 2018-03-20 16:45 | TRAUMAPN ---
Trauma Progress Note Assessment/Plan: 28yo M s/p hanging - CT yesterday: herniation - DI: starting DDAVP - family here, need to discuss organ donation Subjective: warm, still no function Objective: Vital Signs Temp Pulse Resp BP Pulse Ox 36.5 C 87 20 123/88 H 100 03/20/18 16:00 03/20/18 16:00 03/20/18 16:00 03/20/18 16:00 03/20/18 16:00 Laboratory Results 03/20/18 04:10 03/20/18 12:10 03/19/18 03/20/18 03/21/18 05:59 05:59 05:59 Intake Total 4592.1 5519.5 Output Total 720 3850 400 Balance 3872.1 1669.5 -400 PT 16.7 SEC (12.0-15.0) H 03/20/18 04:10 INR 1.33 (0.83-1.16) H 03/20/18 04:10
--- NOTE | 2018-03-20 18:38 | PDINTPN ---
Human Resources Representative Progress Note Assessment/Plan: Assessment: 28-year-old status [facility], with severe anoxic injury. S/P HACA protocol Anoxic injury: Neurologic prognosis very poor, likely brain . He is re- warmed, off sedation or pain medications for 12 hr, unresponsive, with blown pupils. 5 min off ventilator he had no evidence of respiratory efforts despite rising pCO2 and saturations in the 50s. Formal apnea test pending. CT scan of the head yesterday afternoon indicated tentorial and tonsillar herniation. Status post arrest: Secondary to 1. Received CPR, epi. Hypotensive presumably prior to this. Metabolic: Metabolic acidosis. Improving. On a bicarb drip. Hypotension: On Levophed and vasopressin. Will continue IV fluids. Elevated liver functions studies: Secondary to shock liver. Hepatitis B serology negative. Possible history of HIV positivity? HIV antibody screen negative. Leukocytosis: Presumably secondary to shock. DVT prophylaxis: SCDs. GI prophylaxis: On famotidine History of drug abuse, attention deficit hyperactivity disorder, Asperger's, suicide issues in the past. Prognosis: Quite poor as noted above. For apnea test and other tests to determine brain today. I have discussed this with the patient's mother and 2 siblings who are now here. Remains full cor for now. The patient is not decisional regarding medical issues as well as any other issues as a result of his severe anoxic injury. Medical power of business attorney likely will be the patient' s aunt who is an ICU nurse out of state. Plan: Continue supportive care in the intensive care unit. Formal apnea test to be done this morning. Neurologic consultation will be requested. I have asked the family to consider a do not resuscitate status at this point in time. I also discussed the issue of brain and determining brain . If he is legally brain then we will need to have further discussions with the patient's mother (who may not be accepting of this?), the medical power of business attorney once determined, and with donor [place] if the family is accepting of organ donation. Approximately 100 min of critical care time spent directly with the patient throughout the day, with multiple visits, 2 apnea tests, etc.. Discussed at length with the patient's mother and 2 siblings who have just arrived from out of state, and with Trauma surgery, respiratory, nursing, the ICU multi disciplinary team. APNEA TEST: Initial apnea test was unsuccessful secondary to the fact that we could not get a blood gas after 10 min of being off the ventilator. He was on a T-piece with 100% oxygen blow-by. End-tidal CO2 remained 0 throughout the entire 10+ minutes. Oxygen saturations dropped into the 30s. There is no evidence of any respiratory efforts. At the end comma blood pressure dropped and EKG widened. We were unable to find good pulses or get a blood gas needle into a artery with return blood flow. The patient was bagged temporarily and placed back on the ventilator with return of blood pressure and initially a sinus tachycardia. A 2nd apnea test is planned, with blood gases done at 6 min , 8 min, and if he tolerates the test, 10 min. The 2nd apnea test was also unsuccessful. A blood gas was obtained at about 8 min but is pCO2 hitesh by only approximately 10. Well short of 20. At that point however he was widening his EKG and was losing pulse and blood pressure. He was bagged for short. At time then put back on the ventilator. During the 8+ minutes that he was off the ventilator end-tidal CO2 again remained at 0 and there was no evidence of any respiratory efforts. Objective: Vital Signs Temp Pulse Resp BP Pulse Ox 36.5 C 89 24 H 119/85 H 97 03/20/18 17:00 03/20/18 17:00 03/20/18 17:00 03/20/18 17:00 03/20/18 17:00 Laboratory Results 03/20/18 04:10 03/20/18 17:15 03/19/18 03/20/18 03/21/18 05:59 05:59 05:59 Intake Total 4592.1 5519.5 Output Total 720 3850 400 Balance 3872.1 1669.5 -400 PT 16.7 SEC (12.0-15.0) H 03/20/18 04:10 INR 1.33 (0.83-1.16) H 03/20/18 04:10 ICD10 Worksheet Patient Problems: Problems Problem Status Onset Asphyxiation due to hanging Acute Cardiopulmonary arrest Acute
[2018-03-20] MEDS ORDERED: NOREPINEPHRINE BITARTRATE 16 MG in D5W 250 ML IV SCH (20:00)
[2018-03-20] MEDS ORDERED: NOREPINEPHRINE BITARTRATE 16 MG in NS 250 ML IV SCH (20:00)
[2018-03-21] MEDS: VASOPRESSIN 25 UNIT in D5W 250 ML IV SCH ×2 (04:20→15:22)
[2018-03-21 04:22] LABS: INR 1.45 (0.83-1.16); PROTIME(PATIENT) 17.8 SEC (12.0-15.0)
[2018-03-21 04:40] LABS: PLATELET COUNT 175 10^3/uL (150-400)
[2018-03-21] MEDS: PHENYLEPHRINE HCL 50 MG in NS 250 ML IV SCH (10:10)
[2018-03-21] MEDS: ENOXAPARIN 80 MG/0.8 ML SYR SC SCH (10:27)
[2018-03-21] MEDS: FAMOTIDINE 20 MG/NACL 50 ML IV SCH (10:27)
[2018-03-21] MEDS: CHLORHEXIDINE GLUCONATE 15 ML UDL PO SCH (10:27)
[2018-03-21] MEDS ORDERED: MAGNESIUM SULF 1 GM/DEXTROSE 100 ML IV ONE (10:43)
--- NOTE | 2018-03-21 11:03 | NEUROPROG ---
Assessment: BACKGROUND: 28 [facility] after being found hanging from a bed sheet in his cell. He was in cardiopulmonary arrest at that point but resuscitated. Unknown down time, but at most 30 mins given q30 min rounds by [facility] staff. He was started on HACA protocol and rewarmed yesterday. Has been off sedatives, is not paralyzed, had no electrolyte/endocrine disturbance noted. Respiratory status/acid-base status optimized per Pulm/CC team. CT head was done showing global cerebral edema and tentorial/tonsillar herniation. Pulm/CC team has not noted any meaningful neurologic function including brainstem activity. Neurology has been asked to perform a brain exam. Apnea testing was performed but on discontinuing MV his BP dropped precipitously and patient had unstable EKG changes, so MV reinstituted - note that during this test the patient had no respiratory effort whatsoever. INTERVAL HISTORY: No change in clinical status. Went for radionuclide CBF scan this AM. EXAM: VS: BP 120/80, core temp 36.5C GEN: off sedation > 24h, on MV MS: comatose - eyes closed, no response of any kind to verbal, tactile, noxious stimuli CN: pupils 6mm round and fixed/unresponsive to light. Absent oculocephalics. No response/eye movement to cold water caloric testing in each ear after 1 min observation post-infusion in each ear, with testing between ears by 5 mins. Absent corneals. No facial movements to noxious stim of the face and extremities. No gag to ETT manipulation, no cough to deep ETT suction. MOTOR: flaccid, no movements of any kind observed SENSORY: no response to noxious stimulation in all 4 extremities DATA REVIEW: Labs reviewed in EMR PERSONALLY INTERPRETED RESULTS AND DATA: CT head wo as per the background Radionuclide CBF scan - no intracranial flow IMPRESSION AND RECOMMENDATIONS: // BRAIN // COMA // HYPOXIC ISCHEMIC BRAIN INJURY Patient has been confirmed brain this morning at 0926 due to the presence of coma, absence of brainstem function (on serial exams), and no meaningful respiratory function on apnea testing attempt and no intracranial blood flow on radionuclide CBF scan. Further, his CT head wo shows global edema from HIBI and tentorial/tonsillar herniation. There was no significant metabolic, endocrinologic or acid-base dysfunction. He had been off sedation and had no neuromodulating drugs on board. He was normotensive and normothermic at the time of pronunciation. Appropriate documentation filled out and filed in chart. Sign off. Patient critically ill with coma, HIBI and brain 60 mins CC time in direct patient care activities on the floor. Case was directly discussed and coordinated with Dr. Grover, nursing at bedside. Objective: Vital Signs Temp Pulse Resp BP Pulse Ox 37.2 C 84 24 H 118/80 94 03/21/18 10:00 03/21/18 10:00 03/21/18 10:00 03/21/18 10:00 03/21/18 10:00 Laboratory Results 03/21/18 04:00 03/21/18 04:00 03/20/18 03/21/18 03/22/18 05:59 05:59 05:59 Intake Total 5519.5 4083 Output Total 3850 1350 Balance 1669.5 2733 PT 17.8 SEC (12.0-15.0) H 03/21/18 04:00 INR 1.45 (0.83-1.16) H 03/21/18 04:00 Allergies/Adverse Reactions: Unable to Assess Allergy (Unverified 03/18/18 10:16)
--- NOTE | 2018-03-21 12:06 | PDINTPN ---
Board Runner Progress Note Assessment/Plan: Assessment: 28-year-old status admitted 03/18 post self hanging in group home, with severe anoxic injury. S/P HACA protocol Anoxic injury: Pronounced brain this morning based on the final nuclear medicine study determining no flow to the brain. Status post arrest: Secondary to 1. Received CPR, epi. Hypotensive presumably prior to this. Acute respiratory failure: Secondary to 1. Oxygenation somewhat worse. Has a small to moderate pneumo on the left. Stable currently. Hopefully we will soon have a determination regarding organ donation or not and then will proceed with either continued supportive care or removal from the ventilator. Metabolic: Metabolic acidosis resolved.. Hypotension: On Levophed, phenylephrine and vasopressin. On IV fluids. Elevated liver functions studies: Secondary to shock liver. Hepatitis B/C serology negative. Possible history of HIV positivity? HIV antibody screen negative. Leukocytosis: Presumably secondary to shock. DVT prophylaxis: SCDs. GI prophylaxis: On famotidine History of drug abuse, attention deficit hyperactivity disorder, Asperger's, suicide issues in the past. Brain . Pronounced this morning at 9:25 a.m. The patient is not decisional regarding medical issues as well as any other issues as a result of his severe anoxic injury. Medical proxy is the patient's aunt who is an ICU nurse out of state. The patient's mother is still involved in decision making and is thinking about the possibility of organ donation Plan: Will continue further discussions with the patient's siblings and his mother. I have spoken with the patient's aunt regarding the formal diagnosis of brain this morning. Donor [employer] is also discussing issues with the family and hopefully a determination regarding organ donation by harvest or D CD verses no donation and withdrawal of vent/pressors can be made within the next hour or so Over 1 hr of critical care time spent directly with the patient. Discussed with the patient's family, donor [employer], nursing and ICU team members.. Subjective: Unresponsive. Remains on the ventilator - 3 pressors Objective: Vital Signs Temp Pulse Resp BP Pulse Ox 37.2 C 85 20 121/82 H 95 03/21/18 11:00 03/21/18 11:09 03/21/18 11:09 03/21/18 11:00 03/21/18 11:09 Laboratory Results 03/21/18 04:00 03/21/18 04:00 03/20/18 03/21/18 03/22/18 05:59 05:59 05:59 Intake Total 5519.5 4083 Output Total 3850 1350 Balance 1669.5 2733 PT 17.8 SEC (12.0-15.0) H 03/21/18 04:00 INR 1.45 (0.83-1.16) H 03/21/18 04:00 Laboratory Tests 03/21/18 03/21/18 04:00 05:45 pCO2 52 H pO2 61 L ABG pH 7.23 L ABG O2 Saturation 88 L Respiration Rate 18 Set Respiration Rate 18 Tidal Volume 550 Calcium 7.8 L Ionized Calcium 1.21 Phosphorus 3.5 Magnesium 1.6 AST 117 H ALT 316 H Albumin 2.5 L CXR: New pneumothorax on the left. Patchy infiltrate at right base. Brain scan this morning: Absolutely no flow to the brain. This indicates brain . Physical Exam - Physical Exam General Appearance: unresponsive EENT: No PERRL/EOMI (Large pupils, unreactive. No gag. No corneals.) Neck: other (Collar in place) Respiratory: lungs clear (Anteriorly), decreased breath sounds (At bases, left more so than right), No rales, No rhonchi, No wheezing Cardiac/Chest: regular rate, rhythm Abdomen: distended (Mildly distended), No normal bowel sounds Male Genitalia: other (Cabrera catheter in place. I/O = 4000/1350 last 24 hr) Skin: normal color, warm/dry Extremities: No pedal edema Neuro/Psych: cognition abnormalities, other (Brain ), No no motor/sensory deficits ICD10 Worksheet Patient Problems: Problems Problem Status Onset Asphyxiation due to hanging Acute Cardiopulmonary arrest Acute
--- NOTE | 2018-03-21 15:36 | ASMTCMCOM ---
CM Note CM Note Notes: Patient has been determined "brain ". Donor [place] present to explain what they do. Family to determine if they would like to donate Noah or not. Family also interested in Medicaid assistance with cremation. This info to be given to them after their decision to donate. Date Signed: 03/21/2018 03:35 PM Electronically Signed By:Ann Huber LCSW
[2018-03-21 18:55] VITALS: BP 128/87
--- NOTE | 2018-03-21 23:04 | CPEKG ---
Heart Rate: 116 RR Interval: 517 P-R Interval: 116 QRSD Interval: 72 QT Interval: 316 QTC Interval: 439 P Buckley: 78 QRS Buckley: 52 T Wave Buckley: 260 EKG Severity - ABNORMAL ECG - EKG Impression: SINUS TACHYCARDIA EKG Impression: NONSPECIFIC T ABNORMALITIES, LATERAL LEADS Electronically Signed By: Wilder Christensen 22-Mar-2018 13:16:38
[2018-03-21 23:42] LABS: PLATELET COUNT 120 10^3/uL (150-400)
[2018-03-21 23:53] LABS: CREATINE KINASE 119 IU/L (0-224)
[2018-03-22 00:04] LABS: INR 1.44 (0.83-1.16); PROTIME(PATIENT) 17.7 SEC (12.0-15.0)
--- NOTE | 2018-03-22 12:45 | ECHO ---
[email or web address] [address] [address] Main: [phone] Fax: Transthoracic Echocardiogram Name: GAIL HINTON MR#: [id number] Study Date: 03/22/2018 Study Time: 10:27 AM Date of : 1990 Age: 28 year(s) Height: 180.3 cm (71 in.) Weight: 85.73 kg (189 lb.) BSA: 2.06 m2 Gender: Male Examination: Echo Indication: donor alliance case Image Quality: Adequate Contrast: Requested by: Tho Grover BP: 98 mmHg/42 mmHg Heart Rate: Rhythm: Indication: donor alliance case Procedure Staff [place] Operator: Cally Bonilla [facility] Reading Physician: Abiodun Mills MD Requesting Provider: Conclusions: Left ventricle upper limits of normal. No LV hypertrophy. Mildly reduced systolic LV function. EF is 42 %. Normal RV function. The mitral valve is normal in appearance and function. Trivial mitral valve regurgitation. No mitral stenosis is present. There is no significant aortic valve regurgitation. No aortic valve stenosis is present. Mild tricuspid regurgitation is present. There is no pulmonic regurgitation seen. Normal size aortic root measuring 2.6 cm. There is a pleural effusion present. No previous available Measurements: Chambers Valvular Assessment AV/MV Valvular Assessment TV/PV Normal Normal Normal Name Value Range Name Value Range Name Value Range Ao Jeanette (MM): 2.6 cm (2.2 cm-3.7 AV Vmax: 1.21 m/s (1 m/s-1.7 PV Vmax: 0.91 m/s (0.6 m/s-0.9 cm) m/s) m/s) IVSd (2D): 0.8 cm (0.6 cm-1.1 AV maxP mmHg ( - ) PV PGmax: 3 mmHg ( - ) cm) AV meanP mmHg ( - ) LVDd (2D): 5.6 cm (4.2 cm-5.9 LVOT Vmax: 0.70 m/s (0.7 m/s-1.1 cm) m/s) LVDs (2D): 4.4 cm (2.1 cm-4 cm) LVPWd (2D): 0.9 cm (0.6 cm-1 cm) Patient: GAIL HINTON Study Date: 03/22/2018 Page 1 of 2 10:27 AM LVEF (2D): 42 (>=54 %) Continued Measurements: Findings: Left Ventricle: Left ventricle upper limits of normal. No LV hypertrophy. Mildly reduced systolic LV function. EF is 42 %. Right Ventricle: Normal size right ventricle. Normal RV function. Left Atrium: The left atrium is normal in size. Right Atrium: The right atrium is normal in size. Mitral Valve: The mitral valve is normal in appearance and function. Trivial mitral valve regurgitation. No mitral stenosis is present. Aortic Valve: The aortic valve is tri-leaflet. There is no significant aortic valve regurgitation. No aortic valve stenosis is present. Tricuspid Valve: The tricuspid valve is normal in appearance and function. Mild tricuspid regurgitation is present. Pulmonic Valve: The pulmonic valve is normal in appearance and function. There is no pulmonic regurgitation seen. Aorta: The aorta is normal. Normal size aortic root measuring 2.6 cm. Pericardium: No pericardial effusion. There is a pleural effusion present. Exam Comments: Incidental finding - cyst seen on liver. (No Signature Object) Patient: GAIL HINTON Study Date: 03/22/2018 Page 2 of 2 10:27 AM [id number]
--- NOTE | 2018-04-11 13:31 | GDS ---
[f rep st] DISCHARGE SUMMARY DIAGNOSES: 1. Suicide by hanging. 2. Anoxic encephalopathy/brain . HOSPITAL COURSE: The patient was admitted following self-hanging in skilled nursing. He was admitted through [facility] emergency department and transferred to the intensive care unit on the ventilator for supportive c are. He was placed on the HACA protocol. He was hypotensive on Levophed and had a profound metaboli c acidosis and evidence of shock liver. Following rewarming, he never regained consciousness. Pupil s were blown. CT scan of the head showed evidence of diffuse injury. A nuclear medicine brain scan was done on 03/21 in the morning. This showed no perfusion of the brain, consistent with brain . The patient was seen by Neurology. Other indications of complete lack of brain function were pres ent. He was pronounced at 9:25 a.m. After his , the care of his body and organs was trans ferred to Donor [facility]. /[id number]/MODL
--- NOTE | 2018-04-25 15:27 | GOP ---
[f rep st] OPERATIVE REPORT DATE OF OPERATION: 03/19/2018 SURGEON: Abiodun Yip MD PREOPERATIVE DIAGNOSIS: ANOXIC BRAIN INJURY POSTOPERATIVE DIAGNOSIS: SAME PROCEDURE PERFORMED: Right femoral arterial line placement. FINDINGS: GOOD FLOW INDICATIONS: The patient is in the unit on pressors after a hanging episode and anoxic brain injury. A central line was needed because of the need for pressors. DESCRIPTION OF PROCEDURE: His right groin was prepped and draped in the usual sterile fashion. Using ultrasound guidance, a direct stick was made in the right femoral vein. A guidewire was introduced and passed without difficulty. The dilator was passed over the guidewire, and then a triple-lumen catheter was passed over the guidewire, which was then removed. Good backflow was present. The catheter was flushed with some heparin and saline, and secured at the exit site with 3-0 silk sutures. Wound was dressed. He tolerated the procedure well. There were no complications. /[id number]/MODL MTDD
== END 2018-03-21 19:57 | disposition still patient (30) | DRG 59 ==
LOC: EDUNIT# → EEVIPCON 09:22 → F2N 10:50
PROVIDERS: ADMIT Surgery; ATTEND Surgery
PROC: 5A1945Z Respiratory Ventilation, 24-96 Consecutive Hours (ICD-10-PCS; principal; 2018-03-18)
PROC: 0BH17EZ Insertion of Endotracheal Airway into Trachea, Via Natural or Artificial Opening (ICD-10-PCS; principal; 2018-03-18)
PROC: 06HM33Z Insertion of Infusion Device into Right Femoral Vein, Percutaneous Approach (ICD-10-PCS; 2018-03-18)
DX: G93.1 Anoxic brain damage, not elsewhere classified (principal); J96.01 Acute respiratory failure with hypoxia; T71.162A Asphyxiation due to hanging, intentional self-harm, initial encounter; R40.2431 Glasgow coma scale score 3-8, in the field [EMT or ambulance]; Y92.143 Cell of prison as the place of occurrence of the external cause; E87.2 Acidosis; F90.9 Attention-deficit hyperactivity disorder, unspecified type; F15.10 Other stimulant abuse, uncomplicated; Z21 Asymptomatic human immunodeficiency virus [HIV] infection status
CPT/HCPCS: 80305; 82435-PO; 82565-PO; 82947-PO; 84132-PO; 84295-PO; 84520-PO; 85014-PO; A9512; G0472; G0480; J1650; J1815; J2370; J2597; J2704; J3010; J3475; J3480; Q9967

== ENCOUNTER 2018-03-21 09:36 | Inpatient (IN) | payer OTHER ==
--- NOTE | 2018-03-21 21:48 | GPN ---
[f rep st] PROCEDURE NOTE DATE OF PROCEDURE: 03/21/2018 ANESTHESIA: None. PRE PROCEDURE DIAGNOSIS: Brain . POSTPROCEDURE DIAGNOSIS: Brain . PROCEDURE PERFORMED: Arterial line placement. SPECIMENS: None. ESTIMATED BLOOD LOSS: 5 cc. INDICATIONS: The patient is a 28-year-old who was declared brain , Organ Donor [facility] asked for an arterial line. DESCRIPTION OF PROCEDURE: The patient was in the ICU. I prepped his wrist with chlorhexidine. Using sterile technique, I palpated the radial artery on the right wrist. I used a catheter to puncture the artery. I withdrew the needle and then threaded the catheter over the thin wire. Placement was confirmed with the A-line tracing. Tegaderm applied. /[id number]/MODL MTDD
[2018-03-21] MEDS ORDERED: INSULIN REGULAR HUMAN 100 UNIT/ML UNIT IVP ONE (22:30)
[2018-03-21] MEDS ORDERED: D50W 25 GM/50 ML SYR IVP ONE (22:30)
[2018-03-21] MEDS ORDERED: methylPREDNISolone SOD SUCC 2 GM in D5W 100 ML IV ONE (22:30)
[2018-03-21] MEDS ORDERED: LEVOTHYROXINE 20 MCG in NS (SYRINGE) 50 ML IVP ONE (22:30)
[2018-03-21] MEDS ORDERED: NOREPINEPHRINE BITARTRATE 16 MG in D5W 250 ML IV SCH (23:00)
[2018-03-21] MEDS ORDERED: PHENYLEPHRINE HCL 50 MG in D5W 250 ML IV SCH (23:00)
[2018-03-21] MEDS ORDERED: NS 1,000 ML IV SCH (23:00)
[2018-03-22] MEDS: LEVOTHYROXINE 200 MCG in NS 500 ML IV SCH ×4 (00:04→16:09)
[2018-03-22] MEDS: IPRATROPIUM/ALBUTEROL 3 ML DEYVIAL IH SCH ×7 (02:21→23:16)
[2018-03-22] MEDS ORDERED: FUROSEMIDE 40 MG/4 ML VIAL ONE (02:37)
--- NOTE | 2018-03-22 02:55 | GCON ---
[f rep st] CONSULTATION PROCEDURE: Fiberoptic bronchoscopy. INDICATION: Hypoxemia, abnormal chest x-ray. Procedure was performed in the intensive care unit. Continuous pulse ox, EKG, and blood pressure mon itoring. PROCEDURE: Bronchoscope was entered through a #8 endotracheal tube. Distal trachea and andrew were visualized. Showed no endobronchial lesion, normal-appearing mucosa. Bronchoscope in the left lung. Left upper lobe, lingula, left lower lobe including subsegments were visualized. Showed no endobro nchial lesions, normal-appearing mucosa. Bronchoscope in the right lung. Right upper lobe, right mi ddle, right lower lobe including subsegments were visualized and showed no endobronchial lesion, norm al-appearing mucosa. Throughout both lungs, there were scant secretions. Bronchoalveolar lavage joycelyn en from the right lower lobe. Patient tolerated the procedure well. There were no apparent complica tions. /[id number]/MODL
[2018-03-22] MEDS ORDERED: FUROSEMIDE 40 MG/4 ML VIAL IVP ONE (03:00)
[2018-03-22] MEDS: PIPERACILLIN/TAZO 4.5 GM/DEX 100 ML IV SCH ×4 (03:19→21:05)
[2018-03-22 05:19] LABS: INR 1.46 (0.83-1.16); PROTIME(PATIENT) 17.9 SEC (12.0-15.0)
[2018-03-22] MEDS ORDERED: DOPamine/DEXTROSE 400 MG/250 ML BAG IV ONE (05:28)
[2018-03-22 05:42] LABS: CREATINE KINASE 119 IU/L (0-224)
[2018-03-22 05:48] LABS: PLATELET COUNT 120 10^3/uL (150-400)
[2018-03-22] MEDS: METHYLPREDNISOLONE IV SCH ×3 (06:10→22:29)
[2018-03-22] MEDS ORDERED: MAGNESIUM SULF 1 GM/DEXTROSE 100 ML IV ONE ×2 (06:30)
[2018-03-22] MEDS: VASOPRESSIN 25 UNIT in D5W 250 ML IV SCH (08:03)
[2018-03-22] MEDS ORDERED: ALBUTEROL 60 PUFFS/8 GM MDI IH ONE (09:54)
[2018-03-22 11:56] LABS: PLATELET COUNT 110 10^3/uL (150-400)
[2018-03-22 16:06] LABS: CREATINE KINASE 77 IU/L (0-224)
--- NOTE | 2018-03-22 16:10 | ASMTCMCOM ---
CM Note CM Note Notes: Met with family members of patient regarding arrangements, transport of the body back to [place], Medicaid, hospital bill, etc. Family must first find out if patient was still [place] Medicaid or if he actually got the Medicaid transferred to [place]. They will be picking a home here in [place] to coordinate with a home in [place]. CM will follow. Date Signed: 03/22/2018 04:09 PM Electronically Signed By:Hetal Jules LCSW
[2018-03-22 16:27] LABS: PLATELET COUNT 115 10^3/uL (150-400)
--- NOTE | 2018-03-22 16:33 | ECHO ---
[email or web address] [address] [address] Main: [phone] Fax: Transthoracic Echocardiogram Name: GAIL HINTON MR#: [id number] Study Date: 03/22/2018 Study Time: 03:47 PM Date of : 1990 Age: 28 year(s) Height: ( ) Weight: ( ) BSA: Gender: Male Examination: Limited Echo Indication: Limited echocardiogram to reassess LVFX Image Quality: Technically Difficult Contrast: Requested by: Humphrey Billings BP: / Heart Rate: Rhythm: Indication: Limited echocardiogram to reassess LVFX Procedure Staff Client Engagement Manager: Ml Bull [facility] Reading Physician: Abiodun Mills MD Requesting Provider: Conclusions: there are very limited views available. I have reviewed this study and discussed it with my colleague. we both feel is no way to accurately get an accurate ejection fraction with this limited data. If further information is needed about the current ejection fraction a radio nucleatide ventriculogram would give an accurate number. I will call this report to the intensive care unit. Measurements: Chambers Valvular Assessment AV/MV Valvular Assessment TV/PV Normal Normal Normal Name Value Range Name Value Range Name Value Range Continued Measurements: Findings: Exam Comments: Very limited acoustic windows. Apical is the only window available. Visual estimate of the ejection fraction is difficult due to limit views . (No Signature Object) Patient: GAIL HINTON Study Date: 03/22/2018 Page 1 of 1 03:47 PM [id number]
[2018-03-22 16:44] LABS: CREATINE KINASE 116 IU/L (0-224)
[2018-03-22] MEDS ORDERED: MAGNESIUM SULF 2 GM/WATER 50 ML IV ONE (17:30)
[2018-03-22 17:40] LABS: INR 1.55 (0.83-1.16); PROTIME(PATIENT) 18.7 SEC (12.0-15.0)
[2018-03-22] MEDS ORDERED: INSULIN REGULAR HUMAN 100 UNIT/ML UNIT IV ONE (17:45)
[2018-03-22] MEDS ORDERED: POTASSIUM Cl (KCl) 50 ML IV ONE (17:45)
[2018-03-22] MEDS ORDERED: LR 500 ML IV ONE (18:45)
[2018-03-22] MEDS ORDERED: LR 1,000 ML IV SCH (19:00)
[2018-03-22 21:41] LABS: CREATINE KINASE 66 IU/L (0-224)
[2018-03-22 22:18] LABS: PLATELET COUNT 101 10^3/uL (150-400)
[2018-03-22] MEDS ORDERED: K PHOS 10 MMOL in D5W 250 ML IV ONE (22:30)
[2018-03-22] MEDS: POTASSIUM Cl (KCl) 50 ML IV SCH (23:45)
[2018-03-23] MEDS: POTASSIUM Cl (KCl) 50 ML IV SCH ×5 (00:47→22:05)
[2018-03-23] MEDS: VASOPRESSIN 25 UNIT in D5W 250 ML IV SCH ×2 (00:47→16:05)
[2018-03-23 01:34] LABS: PLATELET COUNT 88 10^3/uL (150-400)
[2018-03-23 02:30] LABS: CREATINE KINASE 73 IU/L (0-224)
[2018-03-23] MEDS: PIPERACILLIN/TAZO 4.5 GM/DEX 100 ML IV SCH ×4 (03:12→20:48)
[2018-03-23] MEDS: IPRATROPIUM/ALBUTEROL 3 ML DEYVIAL IH SCH ×5 (04:32→21:00)
[2018-03-23 04:58] LABS: CREATINE KINASE 78 IU/L (0-224)
[2018-03-23 05:00] LABS: INR 1.46 (0.83-1.16); PROTIME(PATIENT) 17.9 SEC (12.0-15.0)
[2018-03-23] MEDS: LEVOTHYROXINE 200 MCG in NS 500 ML IV SCH ×3 (05:35→17:48)
[2018-03-23] MEDS: METHYLPREDNISOLONE IV SCH ×3 (05:42→22:16)
[2018-03-23 05:50] LABS: PLATELET COUNT 98 10^3/uL (150-400)
[2018-03-23] MEDS ORDERED: D5W NS 1,000 ML IV SCH (06:00)
--- NOTE | 2018-03-23 12:27 | ASMTCMCOM ---
CM Note CM Note Notes: Contacted [facility] who faxed me the Application for [place] Assistance and states this same office determines if they will get any assistance with transport back to [place]. Gave the information to Malorie, patient's sister. Patient's Medicaid was transferred to [place] and his Medicaid number is [id number]. This information was shared with Malorie as well. The number for Medicaid [place] Assistance is [phone]. CM will continue to follow for family support. Date Signed: 03/23/2018 12:26 PM Electronically Signed By:Hetal Jules LCSW
[2018-03-23 12:56] LABS: PLATELET COUNT 78 10^3/uL (150-400)
[2018-03-23 12:57] LABS: CREATINE KINASE 107 IU/L (0-224)
[2018-03-23 17:57] LABS: PLATELET COUNT 84 10^3/uL (150-400)
[2018-03-23 20:04] LABS: CREATINE KINASE 154 IU/L (0-224)
[2018-03-23] MEDS ORDERED: CHLORHEXIDINE GLUC HIBICLENS 118 ML BTL TP ONE (22:45)
[2018-03-24 00:35] LABS: PLATELET COUNT 82 10^3/uL (150-400)
[2018-03-24] MEDS: IPRATROPIUM/ALBUTEROL 3 ML DEYVIAL IH SCH (01:15)
[2018-03-24] MEDS: LEVOTHYROXINE 200 MCG in NS 500 ML IV SCH (01:27)
[2018-03-24] MEDS: VASOPRESSIN 25 UNIT in D5W 250 ML IV SCH (01:27)
[2018-03-24 01:52] LABS: CREATINE KINASE 177 IU/L (0-224)
[2018-03-24 03:28] VITALS: BP 122/65
[2018-03-24] MEDS: PIPERACILLIN/TAZO 4.5 GM/DEX 100 ML IV SCH (03:29)
--- NOTE | 2018-03-24 10:39 | ECHO ---
[email or web address] [address] [address] Main: [phone] Fax: Transthoracic Echocardiogram Name: GAIL HINTON MR#: [id number] Study Date: 03/23/2018 Study Time: 08:23 AM Date of : 1990 Age: 28 year(s) Height: 180.3 cm (71 in.) Weight: 85.73 kg (189 lb.) BSA: 2.06 m2 Gender: Male Examination: Echo Indication: Organ Donor Screen Image Quality: Contrast: Requested by: Gordy Adhikari BP: 106 mmHg/55 mmHg Heart Rate: Rhythm: Indication: Organ Donor Screen Procedure Staff Digital Ad Trafficker: Rojelio Forrest RDCS Reading Physician: Martin Calhoun MD Requesting Provider: Conclusions: Normal size left ventricle. No LV hypertrophy. Normal global systolic LV function. The ejection fraction is estimated to be 55-60 %. The ejection fraction is visually estimated to be 55 %. No regional wall motion abnormality. Normal diastolic LV function. Normal size right ventricle. Normal RV function. The mitral valve is normal in appearance. The aortic valve is tri-leaflet and functions normally. The tricuspid valve is normal in appearance and function. The pulmonic valve is normal in appearance and function. No pericardial effusion. Measurements: Chambers Valvular Assessment AV/MV Valvular Assessment TV/PV Normal Normal Normal Name Value Range Name Value Range Name Value Range Ao Jeanette (MM): 2.5 cm (2.2 cm-3.7 AV Vmax: 1.47 m/s (1 m/s-1.7 PV Vmax: 0.59 m/s (0.6 m/s-0.9 cm) m/s) m/s) IVSd (2D): 1.0 cm (0.6 cm-1.1 AV maxP mmHg ( - ) PV PGmax: 1 mmHg ( - ) cm) LVOT Vmax: 1.14 m/s (0.7 m/s-1.1 LVDd (2D): 4.7 cm (4.2 cm-5.9 m/s) cm) MV E Vmax: 0.79 m/s ( - ) LVDs (2D): 3.3 cm (2.1 cm-4 MV A Vmax: 0.67 m/s ( - ) cm) MV E/A: 1.18 ( - ) LVPWd (2D): 0.9 cm (0.6 cm-1 cm) LVEF (MM): 65 (>=55 %) Patient: GAIL HINTON Study Date: 03/23/2018 Page 1 of 2 08:23 AM Visual EF: 55 % EF Range: 55-60 % Continued Measurements: Chambers Name Value LADs: 2.8 cm Findings: Left Ventricle: Normal size left ventricle. No LV hypertrophy. Normal global systolic LV function. The ejection fraction is estimated to be 55-60 %. The ejection fraction is visually estimated to be 55 %. No regional wall motion abnormality. Normal diastolic LV function. Right Ventricle: Normal size right ventricle. Normal RV function. Left Atrium: The left atrium is normal in size. Right Atrium: The right atrium is normal in size. Mitral Valve: The mitral valve is normal in appearance. There is no mitral valve regurgitation. Aortic Valve: The aortic valve is tri-leaflet and functions normally. There is no aortic valve regurgitation. Tricuspid Valve: The tricuspid valve is normal in appearance and function. Pulmonic Valve: The pulmonic valve is normal in appearance and function. Trivial pulmonic valve regurgitation. Aorta: The aorta is normal. Pericardium: No pericardial effusion. (No Signature Object) Patient: GAIL HINTON Study Date: 03/23/2018 Page 2 of 2 08:23 AM [id number]
== END 2018-03-24 04:45 | disposition expired | DRG 989 ==
LOC: F2N 09:36
PROVIDERS: ADMIT Surgery; ATTEND Surgery
PROC: 02H633Z Insertion of Infusion Device into Right Atrium, Percutaneous Approach (ICD-10-PCS; principal; 2018-03-21)
PROC: 0B9F8ZX Drainage of Right Lower Lung Lobe, Via Natural or Artificial Opening Endoscopic, Diagnostic (ICD-10-PCS; 2018-03-22)
DX: Z52.6 Liver donor (principal); Z52.4 Kidney donor
CPT/HCPCS: J0690; J1265; J1815; J1940; J2543; J2930; J3475; J3480